=== PATIENT | female | born 1940 | race Caucasian/White ===

== ENCOUNTER → 2017-11-14 | Outpatient (CLI) | payer MEDICARE ==
[~2017-11-14] MED LIST: ASP325T PO; ENAL10TA PO; ENAL20TA PO; HCT25T PO; HYDR-3820 PO; HYDR12.5 PO; IRON; MECL-124 PO; NITR-65 PO; PNT40TEC; SCR1T1; [UNRECOGNIZED DRUG - CODE] PO
--- NOTE | 2017-11-14 14:01 | Diagnostic Imaging Report ---
Indication: Injury to right shoulder. Time of exam: 2:13 PM Three views of the right shoulder were obtained. Glenohumeral and acromioclavicular alignment are normal. Acromiohumeral space is normal. No fracture or dislocation is detected. There are degenerative changes at the glenohumeral joint with some spurring at the humeral head neck junction. Impression: Degenerative changes. No acute bony abnormality is detected. Dictated by: Dictated on workstation # [id number]
== END ==
LOC: RAD 13:39
PROVIDERS: ATTEND Nurse Practitioner Family
DX: M19.011 Primary osteoarthritis, right shoulder (principal)
CPT/HCPCS: 73030

== ENCOUNTER 2019-09-18 11:31 | Outpatient (CLI) | payer MEDICARE ==
[~2019-09-18] VITALS: Ht 165.1 cm; Wt 59.1 kg
[~2019-09-18 11:31] MED LIST changes: +ACHYD1T PO; -HYDR-3820 PO
[2019-09-18] MEDS ORDERED: HYDR12.56 PO (12:57)
== END 2019-09-18 13:15 | disposition home or self-care (01) ==
LOC: PREOP 11:31
PROVIDERS: ATTEND Podiatrist Foot Surgery
DX: Z01.818 Encounter for other preprocedural examination (principal)

== ENCOUNTER 2019-09-25 06:35 | Day surgery (SDC) | payer MEDICARE ==
--- NOTE | 2019-09-21 09:14 | HISTORY AND PHYSICAL ---
DATE OF SERVICE: To have outpatient surgery by Dr. Rodriguez. CHIEF COMPLAINT: Left foot has bunion, wants corrected. ALLERGIC TO MEDICATIONS: CODEINE. MEDICATIONS NOW: 1. Enalapril 20 mg 1 daily. 2. HCTZ 12.5 1 daily. PAST SURGICAL HISTORY: Both rotator cuffs, tonsils, appendectomy, complete hysterectomy and both cataracts. FAMILY HISTORY: Diabetes in grandmother. Heart disease in mother. Denies asthma, TB, lung disease, or cancer. REVIEW OF SYSTEMS: HEAD: Denies headache, dizziness, fainting. EYES, EARS, NOSE AND THROAT: Denies diplopia, tinnitus, sore throat. RESPIRATORY: Denies asthma, TB, coughing, congestion, smoking or wheezing. HEART: No history of heart problems, chest pain or heart murmur. GASTROINTESTINAL: Appetite good. Denies blood in stools, diarrhea, constipation, ulcer, vomiting. GENITOURINARY: Denies blood, pain or frequency. PHYSICAL EXAMINATION: GENERAL: The patient is a white female, thin, in no acute respiratory distress at rest. VITAL SIGNS: Blood pressure 130/80, pulse 84. GENERAL APPEARANCE: Okay. EYES: No conjunctivitis. EARS: No drainage. THROAT: Noninflamed. HEART: Regular rate and rhythm. LUNGS: Clear to auscultation. ABDOMEN: Soft. Liver and spleen nonpalpable. EXTREMITIES: Good dorsalis pedis pulses on feet. IMPRESSION: The patient is okay for surgery. Job ID: [id number] DocumentID: [id number] Dictated Date: 09/18/2019 15:25:35 Director Of Partner Marketing Date: 09/18/2019 15:49:12 Dictated By: PABLO ORDAZ DO
[~2019-09-25] VITALS: Ht 165.1 cm; Wt 59.1 kg
[2019-09-25] VITALS (9 sets, daily range): BP systolic 80–175; BP diastolic 46–98
[~2019-09-25 06:35] MED LIST changes: +HYDR12.56 PO
--- OUTSIDE RECORDS SUMMARY | 2019-09-25 06:39 | XMS REPORT | Continuity of Care Document ---
Author Organization Unknown Address Unknown Phone Unavailable Allergies Active Description Code Type Severity Reaction Onset Reported/Identified Relationship to Patient Clinical Status Yes No Known Drug Allergies [id number] Drug Allergy Unknown N/A 02/09/2016 Yes codeine [id number] Drug Allergy Unknown Vomiting 09/18/2019 Medications There is no data. Problems Date Dx Coded Attending Type Code Diagnosis Diagnosed By 10/30/2012 CATARINO MARTINEZ MD Ot 780. 4 DIZZINESS AND GIDDINESS 10/30/2012 CATARINO MARTINEZ MD Ot 787. 01 NAUSEA WITH VOMITING 03/26/2015 GEORGIA العلي MD Ot 251. 2 HYPOGLYCEMIA NOS 03/26/2015 GEORGIA العلي MD Ot 599. 0 URIN TRACT INFECTION NOS 03/26/2015 GEORGIA العلي MD Ot 780. 2 SYNCOPE AND COLLAPSE 03/26/2015 GEORGIA العلي MD Ot V04. 81 ND FOR PROPHYLACTIC VACCIN AND INOCULATI 02/09/2016 Ot 722.52 LUM B/LUMBOSAC DISC DEGEN 02/09/2016 Ot V76.12 OTH SCREEN MAMMO- MALIGN NEOPLASM OF ANA LAURA 02/09/2016 VI DPM, YADIEL Q Ot M20. 12 HALLUX VALGUS (ACQUIRED), LEFT FOOT 02/09/2016 VI DPM, YADIEL Q Ot M20. 42 OTHER HAMMER TOE(S) (ACQUIRED), LEFT KEITH 02/09/2016 VI DPM, YADIEL Q Ot Z01.818 ENCOUNTER FOR OTHER PREPROCEDURAL EXAMIN 02/09/2016 VI DPM, YADIEL Q Ot Z11. 2 ENCOUNTER FOR SCREENING FOR OTHER BACTER 02/11/2016 GEORGIA العلي MD Ot R10. 2 PELVIC AND PERINEAL PAIN 02/13/2016 Ot 722.52 LUM B/LUMBOSAC DISC DEGEN 02/13/2016 Ot V76.12 OTH SCREEN MAMMO- MALIGN NEOPLASM OF ANA LAURA 02/13/2016 SEGLIE MD, GEORGIA R Ot R10. 2 PELVIC AND PERINEAL PAIN 02/13/2016 VI DPM, YADIEL Q Ot M20. 12 HALLUX VALGUS (ACQUIRED), LEFT FOOT 02/13/2016 VI DPM, YADIEL Q Ot M20. 42 OTHER HAMMER TOE(S) (ACQUIRED), LEFT KEITH 02/15/2016 ZOHRA DANIELSON, GE[place]GIA R Ot R10. 2 PELVIC AND PERINEAL PAIN 02/16/2016 VI DPM, YADIEL Q Ot M20. 12 HALLUX VALGUS (ACQUIRED), LEFT FOOT 02/16/2016 VI DPM, YADIEL Q Ot M20. 42 OTHER HAMMER TOE(S) (ACQUIRED), LEFT KEITH 02/19/2016 VI DPM, YADIEL Q Ot M20. 12 HALLUX VALGUS (ACQUIRED), LEFT FOOT 02/19/2016 VI DPM, YADIEL Q Ot M20. 42 OTHER HAMMER TOE(S) (ACQUIRED), LEFT KEITH 03/02/2016 ZOHRA DANIELSON, GEORGIA R Ot R10. 2 PELVIC AND PERINEAL PAIN 03/23/2016 ZOHRA DANIELSON, GE[place]IA R Ot R10. 2 PELVIC AND PERINEAL PAIN 11/15/2017 PETE COLLADO Ot M19.011 PRIMARY OSTEOARTHRITIS, RIGHT SHOULDER 11/20/2017 PETE COLLADO Ot M19.011 PRIMARY OSTEOARTHRITIS, RIGHT SHOULDER 12/06/2017 PETE COLLADO Ot M19.011 PRIMARY OSTEOARTHRITIS, RIGHT SHOULDER 12/23/2017 PETE COLLADO Ot M19.011 PRIMARY OSTEOARTHRITIS, RIGHT SHOULDER 09/14/2019 PETE COLLADO [employer] Ot M19.011 PRIMARY OSTEOARTHRITIS, RIGHT SHOULDER 09/14/2019 PETE COLLADOP Ot M19.011 PRIMARY OSTEOARTHRITIS, RIGHT SHOULDER 09/18/2019 PETE COLLADO Ot M19.011 PRIMARY OSTEOARTHRITIS, RIGHT SHOULDER 09/18/2019 PABLO REZA DPM Ot Z01.818 ENCOUNTER FOR OTHER PREPROCEDURAL EXAMIN 09/24/2019 PABLO REZA DPM Ot Z01.818 ENCOUNTER FOR OTHER PREPROCEDURAL EXAMIN 09/24/2019 PETE COLLADO Ot M19.011 PRIMARY OSTEOARTHRITIS, RIGHT SHOULDER Procedures There is no data. Results Test Result Range Methicillin resistant Staphylococcus aur eus (MRSA) screening culture - 02/09/16 15:00 Methicillin resistant Staphylococcus aureus (MRSA) scr eening culture NEG NRG Encounters ACCT No. Visit Date/Time Discharge Status Pt. Type Provider Facility Loc./Unit Complaint [id number] 09/18/2019 11:31:00 020 13:15:00 DIS Outpatient PABLO REZA DPM [facility] PREOP HALLUX VALGUS [id number] 11/14/2017 13:39:00 018 23:59:59 CLS Outpatient GÉNESIS KAN PETE FINN [facility] RAD M25.511 [id number] 02/13/2016 10:54:00 016 16:28:00 DIS Outpatient YADIEL LEBRON DPM [facility] LEFT FOOT BUNION AND SE COND DIGIT HAMMERTOE [id number] 02/09/2016 14:11:00 016 23:59:59 CLS Outpatient GEORGIA العلي MD [facility] RAD PAIN OF R PELVIS [id number] 02/09/2016 14:03:00 016 15:22:00 DIS Outpatient YADIEL LEBRON DPM [facility] PREOP LEFT HALLGUS [id number] 03/25/2015 21:13:00 015 13:15:00 DIS Inpatient GEORGIA العلي MD [facility] CSD SYNCOPAL EPISODE;UTI;HY POGLYCEMIA [id number] 10/29/2012 22:30:00 013 00:19:00 DIS Emergency CATARINO MARTINEZ MD [facility] ER VOMITING, DIZZY [id number] 09/25/2019 12:00:00 P EN Preadmit PABLO REZA DPM [facility] HALLUX VALGUS [id number] 06/29/2011 07:00:00 Document Registration [id number] 12/16/2010 07:25:00 Document Registration
[2019-09-25] MEDS ORDERED: LACTATED RINGERS 1,000 ML IV PRN (06:43)
[2019-09-25] MEDS ORDERED: ceFAZolin INJECTION 1,000 MG in WATER (STERILE) FOR INJECTION 10 ML IV ONE (06:45)
[2019-09-25] MEDS ORDERED: BUPIVACAINE 0.5% 30 ML (SENSORCAINE) VIAL ONE (07:07)
[2019-09-25] MEDS ORDERED: MEPIVACAINE (CARBOCAINE) 2% 50 ML VIAL ONE (07:07)
[2019-09-25] MEDS ORDERED: SEVOFLURANE (ULTANE) 15 ML INHAL SOLN ONE (07:18)
[2019-09-25] MEDS ORDERED: ONDANSETRON 4 MG/2 ML (SDV) Z0FRAN ONE (07:18)
[2019-09-25] MEDS ORDERED: DEXAMETHASONE 10 MG/ML (DECADRON) 1 ML VIAL ONE (07:18)
[2019-09-25] MEDS ORDERED: proPOfol 200 MG/20 ML (DIPRIVAN) VIAL IV ONE (07:18)
[2019-09-25] MEDS ORDERED: LIDOCAINE PF 2% 5 ML (XYLOCAINE) VIAL ONE (07:18)
[2019-09-25] MEDS ORDERED: fentaNYL INJECTION 100 MCG/2 ML AMP ONE (07:18)
--- NOTE | 2019-09-25 07:22 | Progress Note-Pre Operative ---
Pre-Operative Progress Note H&P Reviewed The H&P was reviewed, patient examined and no changes noted. Date Seen by Provider: Sep 25, 2019 Time Seen by Provider: 07:31 Date H&P Reviewed: Sep 25, 2019 Time H&P Reviewed: 07:32 Pre-Operative Diagnosis: hallux valgus left foot PABLO REZA DPSubhash Sep 25, 2019 07:22
[2019-09-25] MEDS ORDERED: LACTATED RINGERS 1,000 ML IV SCH (08:38)
--- NOTE | 2019-09-25 08:38 | Anesthesia-General Post-Op ---
General Patient Condition Mental Status/LOC: Same as Preop Cardiovascular: Satisfactory Nausea/Vomiting: Absent Respiratory: Satisfactory Pain: Controlled Complications: Absent Post Op Complications Complications None Follow Up Care/Instructions Patient Instructions None needed. Anesthesia/Patient Condition Patient Condition Patient is doing well, no complaints, stable vital signs, no apparent adverse anesthesia problems. No complications reported per nursing. GORDON CRUZ CRNA Sep 25, 2019 08:38
--- NOTE | 2019-09-25 08:38 | Progress Note-Post Operative ---
Post-Operative Progess Note Surgeon (s)/Talk Show Host (s) Surgeon PABLO REZA DPM Talk Show Host: none Pre-Operative Diagnosis hallux valgus left foot Post-Operative Diagnosis same Procedure & Operative Findings Date of Procedure 09/25/19 Procedure Performed/Findings excision of k wire and remodeling of firts metatarsal head left foot Anesthesia Type general with infiltration. Estimated Blood Loss Estimated blood loss (mL): min Specimens/Packing Specimens Removed none Packing: none PABLO REZA DPM Sep 25, 2019 08:38
[2019-09-25] MEDS ORDERED: ONDANSETRON 4 MG/2 ML (SDV) Z0FRAN IVP PRN (08:45)
[2019-09-25] MEDS ORDERED: morphine INJ 10 MG/ML 1ML (SYR OR VIAL) IVP ONE (08:45)
[2019-09-25] MEDS ORDERED: fentaNYL INJECTION 100 MCG/2 ML AMP IVP ONE (08:45)
--- NOTE | 2019-09-25 10:27 | OPERATIVE REPORT ---
DATE OF SERVICE: 09/25/2019 PREOPERATIVE DIAGNOSIS: Hallux valgus, left foot. POSTOPERATIVE DIAGNOSIS: Hallux valgus, left foot. NAME OF OPERATION: Remodeling first metatarsal head, left foot with removal of K-wire. DESCRIPTION OF OPERATION: With the patient in supine position, having been by general anesthetic with regional infiltration via 9 mL of a 50:50 mixture of 0.5% Marcaine plain and 1% Carbocaine plain, sterile prep and drape were performed. A 2 semielliptical incisions were made linearly around the lesion measuring approximately 1 cm in diameter. Total length of the semielliptical incision was approximately 5 cm. These were deepened with sharp and blunt dissection. Vital structures identified and retracted. Superficial veins were cauterized. Dissection was carried deep to the first MPJ capsule and this was incised in a linear fashion. There was well-developed exostosis noted just under the lesion in question. This was resected. The first metatarsal head was remodeled and bony prominences were removed. A K-wire was removed from the first metatarsal head that was placed in a previous surgery and all bony prominences were remodeled to a normal contour. The area was flushed with copious amounts of saline, inspected for any other anatomical abnormalities, none were noted. Capsule was closed with continuous locked suture of 4-0 Vicryl. Superficial fascia and skin were reapproximated with two horizontal mattress sutures of 4-0 Prolene in continuous locked suture of 4-0 Prolene. Adaptic, sterile corrective compressive wet to dry Betadine dressing were applied, carried above the level of the ankle. The patient tolerated the procedure well with minimal blood loss, left the OR to PAR in apparent good condition, is to be seen in the office in 2 weeks for follow-up care. Job ID: [id number] DocumentID: [id number] Dictated Date: 09/25/2019 08:57:43 Reed Polisher Date: 09/25/2019 10:26:55 Dictated By: PABLO REZA DPM
--- NOTE | 2019-09-26 09:12 | Physical Therapy Progress Note ---
Therapy Progress Note This note is for DOS 09/25/2019. Pt with nurse to toilet. Pt reports she has a walker and cane at home. Per nursing and DC instructions, pt is FWB. Pt demonstrated ability to walk on level surfaces and up/down a step with FWW. Pt appears safe at this time with functional mobility. Nursing reinforced FWB to patient. Pt voiced no questions or concerns. DIVYA JEAN PT Sep 26, 2019 09:12
== END 2019-09-25 10:25 | disposition home or self-care (01) ==
LOC: SDC 06:35
PROVIDERS: ATTEND Podiatrist Foot Surgery
DX: M20.12 Hallux valgus (acquired), left foot (principal); Z11.2 Encounter for screening for other bacterial diseases; I10 Essential (primary) hypertension; Z79.899 Other long term (current) drug therapy; Z88.5 Allergy status to narcotic agent
CPT/HCPCS: 87081

== ENCOUNTER 2020-05-09 16:10 | Inpatient (IN) | payer MEDICARE ==
[~2020-05-09] VITALS: Ht 162.5 cm; Wt 56.5 kg
[~2020-05-09 16:10] MED LIST changes: -ENAL20TA PO; +ENAL20TA16 PO
--- NOTE | 2020-05-09 16:56 | ED Abdominal Pain ---
General Chief Complaint: Abdominal/GI Problems Stated Complaint: VOMITING,STOMACH PAIN Nursing Triage Note: PT REPORTS ABD PAIN THAT STARTED THIS MORNING AFTER TAKING HER MEDICATION. PT WHEELED TO ROOM 05 BY CYDNEY RAMOS. Sepsis Screen: No Definite Risk Source of Information: Patient Exam Limitations: No Limitations (GÉNESIS RIOS STUDENT) History of Present Illness Date Seen by Provider: May 09, 2020 Time Seen by Provider: 16:30 Initial Comments Ms. Rader is an 80 y/o F who presents to ED with chief complaint of a bdominal pain and vomiting. She said last night she was unable to sleep and woke up 12 times for abdominal pain. She said this morning after eating OJ/coffee she vomited. She reports vomiting multiple times after this with her most recent "dry heave" being at 10am. She denies any blood in the stool or diarrhea/constipation with most recent BM yesterday morning. She said her abdominal pain is located in upper abdomen and was 7 or 8 out of 10 at its worst. Right now it is at 5-6/10. She said the pain has been constant since it started overnight and has gradually decreased in intensity. She reports no change in symptoms with eating. She has only been able to eat crackers and sips of water today. She reports a PMH of appendectomy, hysterectomy and a "hole in her stomach" that has been "fixed surgically." She said this hole in her stomach caused her to lose blood through her stool. She denies any blood in the stool right now. Of note, she went to her PCP to get a urine sample 2 days ago for which she started taking ciprofloxacin yesterday for. She is also on hydrochlorothiazide and enalapril for HTN. (GÉNESIS RIOS MED STUDENT) Allergies and Home Medications Allergies Coded Allergies: codeine (Verified Allergy, Unknown, Vomiting, 09/18/19) Home Medications Enalapril Maleate 20 Mg Tablet, 20 MG PO DAILY, (Reported) Hydrochlorothiazide 12.5 Mg Tablet, 12.5 MG PO DAILY, (Reported) Patient Home Medication List Home Medication List Reviewed: Yes (GÉNESIS RIOS STUDENT) Review of Systems Review of Systems Constitutional: No chills, No diaphoresis, No fever, No malaise, No weakness EENTM: No Symptoms Reported; No Nose Congestion, No Throat Pain, No Throat Swelling Respiratory: Denies Cough, Denies Shortness of Air Cardiovascular: Denies Chest Pain Gastrointestinal: Denies Abdomen Distended; Abdominal Pain; Denies Blood Streaked Stools, Denies Constipated, Denies Diarrhea; Nausea, Poor Appetite, Poor Fluid Intake; Denies Rectal Bleeding; Vomiting Genitourinary: No Symptoms Reported Musculoskeletal: no symptoms reported Skin: no symptoms reported Psychiatric/Neurological: No Symptoms Reported (GÉNESIS RIOS) Past Ckoknux-Rwnraq-Wrvyax Hx Patient Social History Alcohol Use: Denies Use Recreational Drug Use: No Smoking Status: Former Smoker Type Used: Cigarettes Former Smoker, Quit: Jul 04, 1969 Recent Foreign Travel: No Contact w/Someone Who Travel: No Recent Infectious Disease Expo: No Recent Hopitalizations: No (GÉNESIS RIOS) Immunizations Up To Date Tetanus Booster (TDap): More than 5yrs PED Vaccines UTD: Yes Date of Pneumonia Vaccine: Jul 04, 2011 Date of Influenza Vaccine: Apr 03, 2019 (GÉNESIS RIOS Sure Chill GUSTAVO) Seasonal Allergies Seasonal Allergies: No (GÉNESIS RIOS) Past Medical History Surgeries: Yes (X5 SURG.FOR PEDAL NEUROMAS, HIATAL HERNIA WITH ULCER REPAIR) Adenoidectomy, Appendectomy, Hysterectomy, Oophorectomy, Orthopedic, Tonsillectomy Respiratory: No Currently Using CPAP: No Currently Using BIPAP: No Cardiac: Yes Hypertension Neurological: No Reproductive Disorders: No Female Reproductive Disorders: Denies 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 Sexually Transmitted Disease: No HIV/AIDS: No Genitourinary: No Gastrointestinal: Yes Polyps, Ulcer Musculoskeletal: Yes Arthritis Endocrine: No HEENT: Yes Cataract Loss of Vision: Denies Hearing Impairment: Denies Cancer: No Psychosocial: No Integumentary: No Blood Disorders: No Adverse Reaction/Blood Tranf: No (HAS HAD BLOOD WITH NO REACTION) (GÉNESIS RIOS Sure [employer]ill GUSTAVO) Family Medical History Alzheimer's disease 19 MOTHER Arthritis 19 FATHER 19 MOTHER Cataracts 19 FATHER 19 MOTHER Visual disorder 19 FATHER 19 MOTHER Physical Exam Vital Signs Vital Signs - First Documented 05/09/20 16:28 Temp 36.6 Pulse 86 Resp 16 B/P (MAP) 138/81 (100) O2 Delivery Room Air (KEISHA CABALLERO MD) Vital Signs Capillary Refill : Less Than 3 Seconds (GÉNESIS RIOS MED STUDENT) Height/Weight/BMI Height: 5'4.00" Weight: 130lbs. 1.0oz. [id number]; 20.00 BMI Method:Stated General Appearance: WD/WN, no apparent distress HEENT: PERRL/EOMI, normal ENT inspection Neck: full range of motion, normal inspection Respiratory: chest non-tender, lungs clear, normal breath sounds, no respiratory distress, no accessory muscle use Cardiovascular: regular rate, rhythm, no murmur Gastrointestinal: normal bowel sounds, soft, no pulsatile mass; No distended, No rebound; tenderness (Minimal TTP at upper abdomen) Extremities: normal range of motion, non-tender, normal inspection, no calf tenderness Back: normal inspection, no CVA tenderness Neurologic/Psychiatric: no motor/sensory deficits, alert, normal mood/affect, oriented x 3 Skin: normal color, warm/dry (GÉNESIS RIOS MED STUDENT) Progress/Results/Core Measures Results/Orders Lab Results Laboratory Tests Test 05/09/20 17:10 Range/Units White Blood Count 9.9 4.3-11.0 10^3/uL Red Blood Count 5.01 3.80-5.11 10^6/uL Hemoglobin 14.9 11.5-16.0 g/dL Hematocrit 43 35-52 % Mean Corpuscular Volume 86 80-99 fL Mean Corpuscular Hemoglobin 30 25-34 pg Mean Corpuscular Hemoglobin Concent 34 32-36 g/dL Red Cell Distribution Width 12.4 10.0-14.5 % Platelet Count 265 130-400 10^3/uL Mean Platelet Volume 9.6 9.0-12.2 fL Immature Granulocyte % (Auto) 1 % Neutrophils (%) (Auto) 88 H 42-75 % Lymphocytes (%) (Auto) 6 L 12-44 % Monocytes (%) (Auto) 6 0-12 % Eosinophils (%) (Auto) 0 0-10 % Basophils (%) (Auto) 0 0-10 % Neutrophils # (Auto) 8.7 H 1.8-7.8 10^3/uL Lymphocytes # (Auto) 0.6 L 1.0-4.0 10^3/uL Monocytes # (Auto) 0.5 0.0-1.0 10^3/uL Eosinophils # (Auto) 0.0 0.0-0.3 10^3/uL Basophils # (Auto) 0.0 0.0-0.1 10^3/uL Immature Granulocyte # (Auto) 0.1 0.0-0.1 10^3/uL Neutrophils % (Manual) 90 % Lymphocytes % (Manual) 5 % Monocytes % (Manual) 5 % Eosinophils % (Manual) 0 % Basophils % (Manual) 0 % Band Neutrophils 0 % Blood Morphology Comment NORMAL Sodium Level 125 *L 135-145 MMOL/L Potassium Level 4.0 3.6-5.0 MMOL/L Chloride Level 88 L 98-107 MMOL/L Carbon Dioxide Level 24 21-32 MMOL/L Anion Gap 13 5-14 MMOL/L Blood Urea Nitrogen 12 7-18 MG/DL Creatinine 0.70 0.60-1.30 MG/DL Estimat Glomerular Filtration Rate > 60 BUN/Creatinine Ratio 17 Glucose Level 125 H 70-105 MG/DL Calcium Level 10.2 H 8.5-10.1 MG/DL Corrected Calcium 8.5-10.1 MG/DL Total Bilirubin 1.5 H 0.1-1.0 MG/DL Aspartate Amino Transf (AST/SGOT) 24 5-34 U/L Alanine Aminotransferase (ALT/SGPT) 22 0-55 U/L Alkaline Phosphatase 65 40-136 U/L C-Reactive Protein High Sensitivity 0.42 0.00-0.50 MG/DL Total Protein 7.4 6.4-8.2 GM/DL Albumin 4.6 H 3.2-4.5 GM/DL Lipase 12 8-78 U/L (KEISHA CABALLERO MD) My Orders Orders - KEISHA CABALLERO MD Cbc With Automated Diff (05/09/20 16:28) Comprehensive Metabolic Panel (05/09/20 16:28) Hs C Reactive Protein (05/09/20 16:28) Lipase (05/09/20 16:28) Ua Culture If Indicated (05/09/20 16:28) Ed Iv/Invasive Line Start (05/09/20 16:28) Ondansetron Injection (Zofran Injectio (05/09/20 17:15) Lactated Ringers (Lr 1000 Ml Iv Solution (05/09/20 17:05) Manual Differential (05/09/20 17:10) Ns Iv 1000 Ml (Sodium Chloride 0.9%) (05/09/20 17:43) Acute Abd Series (05/09/20 18:00) Promethazine Injection (Phenergan Injec (05/09/20 19:15) Famotidine Injection (Pepcid Injection) (05/09/20 19:15) Ct Abdomen/Pelvis W (05/09/20 19:04) (KEISHA CABALLERO MD) Medications Given in ED Current Medications Medications Dose Ordered Sig/Keke Route Start Time Stop Time Status Last Admin Dose Admin Lactated Ringer's 1,000 ml @ 0 mls/hr Q0M ONCE IV 05/09/20 17:05 05/09/20 17:06 DC 05/09/20 17:28 0 MLS/HR Ondansetron HCl 4 mg ONCE ONCE IVP 05/09/20 17:15 05/09/20 17:16 DC 05/09/20 17:23 4 MG (KEISHA CABALLERO MD) Vital Signs/I&O 05/09/20 16:28 Temp 36.6 Pulse 86 Resp 16 B/P (MAP) 138/81 (100) O2 Delivery Room Air (KEISHA CABALLERO MD) Blood Pressure Mean: 100 Progress Progress Note : Progress Note Ms. Aldridge is an 80 year old female who presents to ED with abdominal pain and vomiting of 1 day duration. We will order CBC, CMP, lipase, UA, CRP to assess for infection, blood loss, pancreatitis. (GÉNESIS RIOS MED STUDENT) Progress Note : Time: 19:15 Progress Note Patient was treated with Zofran and labs were obtained. She was found to have hyponatremia. The liter of LR that was ordered was changed to normal saline. Labs otherwise were fairly unremarkable. An acute abdominal series was obtained to evaluate for any pulmonary abnormalities or possible bowel obstruction. Unfortunately, the abdominal film was suggestive of possible obstruction versus ileus. Patient reports persistent nausea which is being treated with Phenergan and Pepcid. CT of the abdomen and pelvis with contrast is being obtained. Care of this patient is being transitioned to Dr. Goldberg at this time. (KEISHA CABALLERO MD) Progress Note : Time: 20:32 Progress Note Assume care of the patient [id number]. I agree with the above documented clinical history and physical exam. I agree with the assessment and does appear to be bowel obstruction on CT. There is a small hypodense tissue at the base of the lungs sitting on the diaphragm that we discussed with Dr. Humphries, radiology and he states this is just coming off the diaphragm it is a bit of fat and does not represent tumor or malignancy. Plan to set the patient up in the hospital for monitoring for bowel obstruction. If her nausea is under control after the P henergan then we will not do an NG tube. (SUKUMAR GOLDBERG) Diagnostic Imaging Diagonstic Imaging: Xray Plain Films/CT/US/NM/MRI: chest, abdomen, pelvis Comments Acute abdominal series viewed by me and report reviewed. See report below: NAME: NATE RADER [facility] REC#: [id number] PT STATUS: REG ER : 1940 PHYSICIAN: KEISHA CABALLERO MD ADMIT DATE: 05/09/20/ER Draft Date of Exam:05/09/20 ACUTE ABD SERIES INDICATION: Abdominal pain. EXAMINATION: The upright chest shows no acute abnormality. FINDINGS: Supine and upright views of the abdomen shows several air-filled loops of small bowel with several loops being upper normal in diameter at 3 cm. No mucosal edema is evident. There is some air in the colon. There is interposition of a loop of colon between the diaphragm and liver. There is a calcification in the left lower quadrant which is curvilinear in nature and measures approximately 3 cm in greatest dimension. This is somewhat oblong and unusual for gallstone ileus although in the differential it is not felt to be likely. There is no free intraperitoneal air. No urinary tract calculus is evident. There are degenerative changes of the spine. IMPRESSION: The bowel gas pattern is probably secondary to an ileus. Low-grade obstruction is a possibility. Continued follow-up is recommended. Dictated on workstation # [id number] Dict: 05/09/20 1845 Trans: 05/09/20 1852 [facility] [id number] Interpreted by: JAYSON HUMPHRIES MD (KEISHA CABALLERO MD) Diagonstic Imaging: CT Plain Films/CT/US/NM/MRI: abdomen, pelvis Comments [facility]. [place], [place] NAME: NATE RADER [facility] REC#: [id number] PT STATUS: REG ER : 1940 PHYSICIAN: KEISHA CABALLERO MD ADMIT DATE: 05/09/20/ER Signed Date of Exam:05/09/20 CT ABDOMEN/PELVIS W PROCEDURE: CT abdomen and pelvis with contrast. TECHNIQUE: Multiple contiguous axial images were obtained through the abdomen and pelvis after administration of intravenous contrast. Auto Exposure Controls were utilized during the CT exam to meet ALARA standards for radiation dose reduction. All CT scans use one or more of the following dose optimizing techniques: automated exposure control, MA and/or KvP adjustment based on patient size and exam type or iterative reconstruction. INDICATION: Abdominal pain. Possible small bowel obstruction. FINDINGS: There is a small hiatal hernia. The lung bases are clear. Liver, gallbladder and bile ducts are normal. The spleen, pancreas and adrenals are normal. Kidneys, ureters and bladder are normal. There are multiple air and fluid-filled loops of dilated small bowel proximally. There are nondilated loops of small bowel distally and the changes are consistent with a small bowel obstruction. There is a 3 cm curvilinear calcification seen in the mesentery in the left mid abdomen which does not appear to be within a loop of bowel. There is no bowel wall edema. There is some air scattered throughout a nondilated colon. There is no free intraperitoneal air or fluid. There is no acute bony abnormality. IMPRESSION: Small bowel obstruction. No obstructing lesion is evident on this study. No bowel wall edema is evident at this time. Dictated by: Dictated on workstation # [id number] Dict: 05/09/201945 Trans: 05/09/201952 [facility] [id number] Interpreted by: JAYSON HUMPHRIES MD Electronically signed by: JAYSON HUMPHRIES MD 05/09/201952 Reviewed: Reviewed by Me (SUKUMAR GOLDBERG) Departure Communication (Admissions) Time/Spoke to Admitting Phy: 20:42 Dr Cabral: Agrees to admit or medical managment with Surgical Consult. Time/Spoke to Consulting Phy: 20:43 Discussed the case with Dr. Rosa, General Surgery and he agrees to consult on the case. (SUKUMAR GOLDBERG) Impression Primary Impression: Small bowel obstruction Additional Impressions: Abdominal pain Qualified Codes: R10.84 - Generalized abdominal pain Nausea & vomiting Qualified Codes: R11.2 - Nausea with vomiting, unspecified Hyponatremia Disposition: ADMITTED INPATIENT Condition: Stable Admissions Decision to Admit Reason: Admit from ER (General) Decision to Admit/Date: May 09, 2020 Time/Decision to Admit Time: 20:30 (SUKUMAR GOLDBERG) Departure-Patient Inst. Referrals: GEORGIA العلي MD (PCP) Primary Care Physician MADDIE MARTINEZ MD (Family) Primary Care Physician Medical student attestation and attending note: This pleasant 80-year-old woman presents to the emergency room with nausea, vomiting, and abdominal discomfort. I have personally interviewed and examined the patient along with COSMO Spann. I have reviewed his documentation and agree with his history, physical, and assessments except where otherwise noted. See progress note above. Exam: General: Alert, oriented, well-developed no acute distress. HEENT: Normocephalic and atraumatic Heart: Regular rate and rhythm without murmur Lungs: Clear to auscultation bilaterally with normal effort Abdomen: Soft, minimally tender in the upper abdomen, normal bowel sounds, mildly distended Extremities: Normal to inspection, no edema Neuropsych: Alert, oriented, normal mood and affect, no focal deficits (KEISHA CABALLERO MD) GÉNSEIS RIOS MED STUDENT May 09, 2020 16:55 KEISHA CABALLERO MD May 09, 2020 19:17 SUKUMAR GOLDBERG May 09, 2020 20:33
[2020-05-09] MEDS ORDERED: LACTATED RINGERS 1,000 ML IV ONE (17:05)
[2020-05-09] MEDS ORDERED: ONDANSETRON 4 MG/2 ML (SDV) Z0FRAN IVP ONE (17:15)
[2020-05-09 17:29] LABS: BASOPHILS % (AUTO) 0 % (0-10); EOSINOPHILS % (AUTO) 0 % (0-10); HEMATOCRIT 43 % (35-52); HEMOGLOBIN 14.9 g/dL (11.5-16.0); LYMPHOCYTES # (AUTO) 0.6 10^3/uL (1.0-4.0); LYMPHOCYTES % (AUTO) 6 % (12-44); MEAN CORPUSCULAR HEMOGLOBIN 30 pg (25-34); MEAN CORPUSCULAR HGB CONC 34 g/dL (32-36); MEAN CORPUSCULAR VOLUME 86 fL (80-99); MEAN PLATELET VOLUME 9.6 fL (9.0-12.2); MONOCYTES # (AUTO) 0.5 10^3/uL (0.0-1.0); MONOCYTES % (AUTO) 6 % (0-12); NEUTROPHILS # (AUTO) 8.7 10^3/uL (1.8-7.8); NEUTROPHILS % (AUTO) 88 % (42-75); PLATELET COUNT 265 10^3/uL (130-400); WHITE BLOOD COUNT 9.9 10^3/uL (4.3-11.0)
[2020-05-09 17:34] LABS: ALBUMIN 4.6 GM/DL (3.2-4.5); CHLORIDE 88 MMOL/L (98-107)
[2020-05-09 17:35] LABS: CALCIUM 10.2 MG/DL (8.5-10.1)
[2020-05-09 17:36] LABS: GLUCOSE 125 MG/DL (70-105); TOTAL PROTEIN 7.4 GM/DL (6.4-8.2)
[2020-05-09 17:38] LABS: BILIRUBIN,TOTAL 1.5 MG/DL (0.1-1.0); CARBON DIOXIDE 24 MMOL/L (21-32)
[2020-05-09 17:40] LABS: ALKALINE PHOSPHATASE 65 U/L (40-136); GFR ESTIMATED > 60
[2020-05-09 17:41] LABS: BUN/CREATININE RATIO 17; SODIUM 125 MMOL/L (135-145)
[2020-05-09 17:43] LABS: ALANINE AMINOTRANSFERASE 22 U/L (0-55); LIPASE 12 U/L (8-78)
[2020-05-09] MEDS ORDERED: NS IV 1000 ML 1,000 ML IV SCH (17:43)
[2020-05-09 17:59] LABS: BAND NEUTROPHILS 0 %; BASOPHILS % (MANUAL) 0 %; EOSINOPHILS % (MANUAL) 0 %; LYMPHOCYTES % (MANUAL) 5 %; MONOCYTES % (MANUAL) 5 %; NEUTROPHILS % (MANUAL) 90 %; RBC MORPH NORMAL
--- NOTE | 2020-05-09 18:52 | Diagnostic Imaging Report ---
INDICATION: Abdominal pain. EXAMINATION: The upright chest shows no acute abnormality. FINDINGS: Supine and upright views of the abdomen shows several air-filled loops of small bowel with several loops being upper normal in diameter at 3 cm. No mucosal edema is evident. There is some air in the colon. There is interposition of a loop of colon between the diaphragm and liver. There is a calcification in the left lower quadrant which is curvilinear in nature and measures approximately 3 cm in greatest dimension. This is somewhat oblong and unusual for gallstone ileus although in the differential it is not felt to be likely. There is no free intraperitoneal air. No urinary tract calculus is evident. There are degenerative changes of the spine. IMPRESSION: The bowel gas pattern is probably secondary to an ileus. Low-grade obstruction is a possibility. Continued follow-up is recommended. Dictated by: Dictated on workstation # [id number]
[2020-05-09] MEDS ORDERED: FAMOTIDINE 20MG/2ML IV (PEPCID) IVP ONE (19:15)
[2020-05-09] MEDS ORDERED: PROMETHAZINE INJ 25 MG/ML (PHENERGAN) AMP IVP ONE (19:15)
[2020-05-09] MEDS ORDERED: IOHEXOL 350 MG/ML 100 ML (OMNIPAQUE 350) VIAL IV ONE ×2 (19:45)
[2020-05-09] MEDS ORDERED: NS 100 ML (IVPB) BAG IV ONE ×2 (19:45)
[2020-05-09] MEDS ORDERED: HOLD METFORMIN - RECEIVED CONTRAST 20 ML VIAL IV SCH ×2 (19:45)
--- NOTE | 2020-05-09 19:51 | Diagnostic Imaging Report ---
PROCEDURE: CT abdomen and pelvis with contrast. TECHNIQUE: Multiple contiguous axial images were obtained through the abdomen and pelvis after administration of intravenous contrast. Auto Exposure Controls were utilized during the CT exam to meet ALARA standards for radiation dose reduction. All CT scans use one or more of the following dose optimizing techniques: automated exposure control, MA and/or KvP adjustment based on patient size and exam type or iterative reconstruction. INDICATION: Abdominal pain. Possible small bowel obstruction. FINDINGS: There is a small hiatal hernia. The lung bases are clear. Liver, gallbladder and bile ducts are normal. The spleen, pancreas and adrenals are normal. Kidneys, ureters and bladder are normal. There are multiple air and fluid-filled loops of dilated small bowel proximally. There are nondilated loops of small bowel distally and the changes are consistent with a small bowel obstruction. There is a 3 cm curvilinear calcification seen in the mesentery in the left mid abdomen which does not appear to be within a loop of bowel. There is no bowel wall edema. There is some air scattered throughout a nondilated colon. There is no free intraperitoneal air or fluid. There is no acute bony abnormality. IMPRESSION: Small bowel obstruction. No obstructing lesion is evident on this study. No bowel wall edema is evident at this time. Dictated by: Dictated on workstation # [id number]
[2020-05-09 20:38] LABS: BILIRUBIN,URINE NEGATIVE (NEGATIVE); CLARITY,URINE CLOUDY; COLOR,URINE YELLOW; GLUCOSE, URINE (UA) NEGATIVE (NEGATIVE); KETONES,URINE 2+ (NEGATIVE); LEUKOCYTE ESTERASE ,URINE 2+ (NEGATIVE); NITRITE,URINE NEGATIVE (NEGATIVE); PROTEIN,URINE NEGATIVE (NEGATIVE)
[2020-05-09 20:44] LABS: BACTERIA,URINE TRACE /HPF; RBC,URINE 0-2 /HPF; SQUAMOUS EPITHELIAL CELL,UR 0-2 /HPF; WBC,URINE 25-50 /HPF
[2020-05-09] MEDS ORDERED: fentaNYL INJECTION 100 MCG/2 ML AMP IVP ONE (20:45)
[2020-05-09] MEDS ORDERED: fentaNYL INJECTION 100 MCG/2 ML AMP ONE (20:54)
[2020-05-09 21:18] VITALS: BP 142/81
--- NOTE | 2020-05-09 21:35 | NUR ---
Nate AlfSaeLois admitted to room 421-1, with an admitting diagnosis of bowel obstruction , on 05/09/20 from ED via wheelchair, accompanied by staff.NATE RADER introduced to surroundings, call light, bed controls, phone, TV, temperature control, lights, meal times, smoking policy, visitor policy, side rail policy, bathrooms and showers. Patient Rights given to patient in the handbook.NATE RADER verbalizes understanding that [facility] is not responsible for the loss or damage to any personal effects or valuables that are kept in the patients possession during their hospitalization. The following Patient Care Plans were discussed with the patient: Admission, Diagnosis, Discharge Planning. NATE RADER verbalizes understanding of Interdisciplinary Patient Education. Patient and/or family were informed about the Rapid Response Team and its purpose.
[2020-05-09] MEDS ORDERED: fentaNYL INJECTION 100 MCG/2 ML AMP IVP PRN ×2 (22:00)
[2020-05-09] MEDS ORDERED: ONDANSETRON 4 MG/2 ML (SDV) Z0FRAN IVP PRN (22:00)
[2020-05-09] MEDS ORDERED: PROMETHAZINE INJ 25 MG/ML (PHENERGAN) AMP IVP PRN (22:00)
[2020-05-09] MEDS: LACTATED RINGERS 1,000 ML IV SCH (22:24)
[2020-05-09 23:49] VITALS: BP 159/76
[2020-05-10 04:00] VITALS: BP 148/78
[2020-05-10 06:19] LABS: ALBUMIN 3.6 GM/DL (3.2-4.5); CHLORIDE 95 MMOL/L (98-107); POTASSIUM 3.9 MMOL/L (3.6-5.0); SODIUM 126 MMOL/L (135-145)
[2020-05-10 06:20] LABS: CALCIUM 8.8 MG/DL (8.5-10.1)
[2020-05-10 06:21] LABS: GLUCOSE 115 MG/DL (70-105); TOTAL PROTEIN 5.7 GM/DL (6.4-8.2)
[2020-05-10 06:22] LABS: CARBON DIOXIDE 20 MMOL/L (21-32)
[2020-05-10 06:23] LABS: BILIRUBIN,TOTAL 1.4 MG/DL (0.1-1.0)
[2020-05-10 06:25] LABS: ALKALINE PHOSPHATASE 56 U/L (40-136); CREATININE SERUM 0.61 MG/DL (0.60-1.30); GFR ESTIMATED > 60
[2020-05-10 06:26] LABS: BASOPHILS % (AUTO) 0 % (0-10); BUN/CREATININE RATIO 16; EOSINOPHILS % (AUTO) 0 % (0-10); HEMATOCRIT 37 % (35-52); HEMOGLOBIN 13.1 g/dL (11.5-16.0); LYMPHOCYTES # (AUTO) 0.8 10^3/uL (1.0-4.0); LYMPHOCYTES % (AUTO) 9 % (12-44); MEAN CORPUSCULAR HEMOGLOBIN 30 pg (25-34); MEAN CORPUSCULAR HGB CONC 35 g/dL (32-36); MEAN CORPUSCULAR VOLUME 86 fL (80-99); MEAN PLATELET VOLUME 9.9 fL (9.0-12.2); MONOCYTES # (AUTO) 0.8 10^3/uL (0.0-1.0); MONOCYTES % (AUTO) 10 % (0-12); NEUTROPHILS # (AUTO) 6.4 10^3/uL (1.8-7.8); NEUTROPHILS % (AUTO) 80 % (42-75); PLATELET COUNT 225 10^3/uL (130-400)
[2020-05-10 06:28] LABS: ALANINE AMINOTRANSFERASE 15 U/L (0-55)
[2020-05-10 07:40] VITALS: BP 173/91
[2020-05-10] MEDS: LACTATED RINGERS 1,000 ML IV SCH ×2 (08:19→18:27)
[2020-05-10] MEDS ORDERED: PANTOPRAZOLE 40 MG (PROTONIX) VIAL IV SCH (09:00)
[2020-05-10 11:35] VITALS: BP 168/78
--- NOTE | 2020-05-10 12:40 | Progress Note - Hospitalist ---
Subjective HPI/CC On Admission Date Seen by Provider: May 10, 2020 Time Seen by Provider: 12:38 Objective Exam Vital Signs Vital Signs Date Time Temp Pulse Resp B/P (MAP) Pulse Ox O2 Delivery O2 Flow Rate FiO2 05/10/20 11:35 36.6 76 14 168/78 (108) 99 Room Air Capillary Refill : Less Than 3 Seconds Results/Procedures Lab Laboratory Tests 05/09/20 17:10 05/10/20 05:34 Patient resulted labs reviewed. Clinical Quality Measures DVT/VTE Risk/Contraindication: Risk Factor Score Per Nursin RFS Level Per Nursing on Admit: 2=Moderate KAROL GOODWIN MD May 10, 2020 12:40
--- NOTE | 2020-05-10 12:46 | Consultation - Surgery ---
JOURDAN LOPEZ MED STUDENT 05/10/20 1246: History of Present Illness History of Present Illness Patient Consulted On(prema/time) 05/10/20 12:40 Date Seen by Provider: May 10, 2020 Time Seen by Provider: 08:15 History of Present Illness Surgery was consulted for bowel obstruction, abdominal pain, and vomiting. Pt states pain in abdomen started 2 nights ago that was constant 8/10 non-refer red pain. Pain today is 4/10. Pt denies trying anything to help and nothing makes it better or worse. Pt had nausea but denies vomiting today. Pt threw up yesterday after breakfast but denies blood. Pt denies fever or KRUGER. Pt denies previous occurrences. Pt is on clear liquid diet. Last BM was on the 5th and normal loose stools. Pt's bladder has felt full but she can't go. Pt feels weak. Pt has help walking around. Pt's last colonoscopy was more than 10 years ago and had no findings. PMH - HTN, UTI. FamHx- sister had DM, no hx of colon cancer. PSH- appendectomy, hysterectomy, mesh repair in stomach, tonsilectomy, 2 surgeries on feet. med allergy- codeine. SocHx- drinks alcohol 3-4x/wk, denies smoking or recreational drugs. Allergies and Home Medications Allergies Coded Allergies: codeine (Verified Allergy, Unknown, Vomiting, 09/18/19) Home Medications Enalapril Maleate 20 Mg Tablet, 20 MG PO DAILY, (Reported) Hydrochlorothiazide 12.5 Mg Tablet, 12.5 MG PO DAILY, (Reported) Past Wtgrdck-Hpettw-Szbego Hx Patient Social History Alcohol Use: Occasionally Uses (3-4x/wk) Recreational Drug Use: No Smoking Status: Former Smoker Former Smoker, Quit: Jul 04, 1969 Type Used: Cigarettes Recent Foreign Travel: No Contact w/Someone Who Travel: No Recent Infectious Disease Expo: No Recent Hopitalizations: No Immunizations Up To Date Tetanus Booster (TDap): More than 5yrs PED Vaccines UTD: Yes Date of Pneumonia Vaccine: Jul 04, 2017 Date of Influenza Vaccine: Apr 02, 2020 Seasonal Allergies Seasonal Allergies: No Surgeries History of Surgeries: Yes (X5 SURG.FOR PEDAL NEUROMAS, HIATAL HERNIA WITH ULCER REPAIR) Surgeries: Adenoidectomy, Appendectomy, Hysterectomy, Oophorectomy, Orthopedic, Tonsillectomy Respiratory History of Respiratory Disorde: No Cardiovascular History of Cardiac Disorders: Yes Cardiac Disorders: Hypertension Neurological History of Neurological Disord: No Reproductive System Hx Reproductive Disorders: No Sexually Transmitted Disease: No HIV/AIDS: No Female Reproductive Disorders: Denies 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 Genitourinary History of Genitourinary Disor: No Gastrointestinal History of Gastrointestinal Di: Yes Gastrointestinal Disorders: Polyps, Ulcer Musculoskeletal History of Musculoskeletal Dis: Yes Musculoskeletal Disorders: Arthritis Endocrine History of Endocrine Disorders: No HEENT History of HEENT Disorders: Yes HEENT Disorders: Cataract Loss of Vision: Denies Hearing Impairment: Denies Cancer History of Cancer: No Psychosocial History of Psychiatric Problem: No Integumentary History of Skin or Integumenta: No Blood Transfusions History of Blood Disorders: No Adverse Reaction to a Blood Tr: No (HAS HAD BLOOD WITH NO REACTION) Family Medical History Significant Family History: Diabetes (sister) Family Medial History: Alzheimer's disease 19 MOTHER Arthritis 19 FATHER 19 MOTHER Cataracts 19 FATHER 19 MOTHER Visual disorder 19 FATHER 19 MOTHER Review of Systems-General Constitutional: No chills, No fever EENTM: No ear discharge, No hearing loss, No ear pain, No blurred vision, No double vision, No eye pain Respiratory: No cough, No hemoptysis Cardiovascular: No chest pain Gastrointestinal: RLQ, LLQ, abdominal pain (LLQ and RLQ), nausea, vomiting (yesterday) Psychiatric/Neurological: Denies Headache Physical Exam-General Problems Physical Exam Vital Signs Vital Signs - First Documented 05/09/20 05/09/20 16:28 21:15 Temp 36.6 Pulse 86 Resp 16 B/P (MAP) 138/81 (100) Pulse Ox 99 O2 Delivery Room Air Capillary Refill : Less Than 3 Seconds General Appearance: WD/WN, no apparent distress HEENT: PERRL/EOMI Respiratory: lungs clear, normal breath sounds, no respiratory distress, no accessory muscle use Cardiovascular: regular rate, rhythm Gastrointestinal: normal bowel sounds, soft, tenderness (LLQ and RLQ) Neurologic/Psychiatric: alert, oriented x 3 Skin: normal color, warm/dry Data Review Labs Laboratory Tests 05/09/20 17:10: White Blood Count 9.9, Red Blood Count 5.01, Hemoglobin 14.9, Hematocrit 43, Mean Corpuscular Volume 86, Mean Corpuscular Hemoglobin 30, Mean Corpuscular Hemoglobin Concent 34, Red Cell Distribution Width 12.4, Platelet Count 265, Mean Platelet Volume 9.6, Immature Granulocyte % (Auto) 1, Neutrophils (%) (Auto) 88H, Lymphocytes (%) (Auto) 6L, Monocytes (%) (Auto) 6, Eosinophils (%) (Auto) 0, Basophils (%) (Auto) 0, Neutrophils # (Auto) 8.7H, Lymphocytes # (Auto) 0.6L, Monocytes # (Auto) 0.5, Eosinophils # (Auto) 0.0, Basophils # (Auto) 0.0, Immature Granulocyte # (Auto) 0.1, Neutrophils % (Manual) 90, Lymphocytes % (Manual) 5, Monocytes % (Manual) 5, Eosinophils % (Manual) 0, Basophils % (Manual) 0, Band Neutrophils 0, Blood Morphology Comment NORMAL, Sodium Level 125*L, Potassium Level 4.0, Chloride Level 88L, Carbon Dioxide Level 24, Anion Gap 13, Blood Urea Nitrogen 12, Creatinine 0.70, Estimat Glomerular Filtration Rate > 60, BUN/Creatinine Ratio 17, Glucose Level 125H, Calcium Level 10.2H, Corrected Calcium , Total Bilirubin 1.5H, Aspartate Amino Transf (AST/SGOT) 24, Alanine Aminotransferase (ALT/SGPT) 22, Alkaline Phosphatase 65, C-Reactive Protein High Sensitivity 0.42, Total Protein 7.4, Albumin 4.6H, Lipase 12 05/09/20 20:23: Urine Color YELLOW, Urine Clarity CLOUDY, Urine pH 7.0, Urine Specific Rogers 1.010L, Urine Protein NEGATIVE, Urine Glucose (UA) NEGATIVE, Urine Ketones 2+H, Urine Nitrite NEGATIVE, Urine Bilirubin NEGATIVE, Urine Urobilinogen 0.2, Urine Leukocyte Esterase 2+H, Urine RBC (Auto) TRACE-L, Urine RBC 0-2, Urine WBC 25- 50H, Urine Squamous Epithelial Cells 0-2, Urine Crystals NONE, Urine Bacteria TRACE, Urine Casts NONE, Urine Mucus SMALLH, Urine Culture Indicated YES 05/10/20 05:34: White Blood Count 8.0, Red Blood Count 4.32, Hemoglobin 13.1, Hematocrit 37, Mean Corpuscular Volume 86, Mean Corpuscular Hemoglobin 30, Mean Corpuscular Hemoglobin Concent 35, Red Cell Distribution Width 12.3, Platelet Count 225, Mean Platelet Volume 9.9, Immature Granulocyte % (Auto) 0, Neutrophils (%) (Auto) 80H, Lymphocytes (%) (Auto) 9L, Monocytes (%) (Auto) 10, Eosinophils (%) (Auto) 0, Basophils (%) (Auto) 0, Neutrophils # (Auto) 6.4, Lymphocytes # (Auto) 0.8L, Monocytes # (Auto) 0.8, Eosinophils # (Auto) 0.0, Basophils # (Auto) 0.0, Immature Granulocyte # (Auto) 0.0, Sodium Level 126L, Potassium Level 3.9, Chloride Level 95L, Carbon Dioxide Level 20L, Anion Gap 11, Blood Urea Nitrogen 10, Creatinine 0.61, Estimat Glomerular Filtration Rate > 60, BUN/Creatinine Rat io 16, Glucose Level 115H, Calcium Level 8.8, Corrected Calcium 9.1, Total Bilirubin 1.4H, Aspartate Amino Transf (AST/SGOT) 19, Alanine Aminotransferase (ALT/SGPT) 15, Alkaline Phosphatase 56, Total Protein 5.7L, Albumin 3.6 Radiology Date of Exam:05/09/20 CT ABDOMEN/PELVIS with contrast. Small bowel obstruction. No obstructing lesion is evident on this study. No bowel wall edema is evident at this time. Date of Exam:05/09/20 ACUTE ABD SERIES The bowel gas pattern is probably secondary to an ileus. Low-grade obstruction is a possibility. Continued follow- up is recommended. Assessment/Plan Assessment/Plan Assessment/Plan Bowel obstruction - imaging preformed. possible surgery needed. Clinical Quality Measures DVT/VTE Risk/Contraindication: Risk Factor Score Per Nursin RFS Level Per Nursing on Admit: 2=Moderate HERSON BUSBY DO 05/10/20 1416: History of Present Illness History of Present Illness Time Seen by Provider: 12:37 History of Present Illness When I spoke to the pt this afternoon, she had just gotten a tray of clear liquids and stated she had no abdominal pain. She was hungry and happy to start eating. She states she has never had pain like this before and has never been told before that she has had a bowel obstruction. Pt states she still has no flatus or BM. Allergies and Home Medications Allergies Coded Allergies: codeine (Verified Allergy, Unknown, Vomiting, 09/18/19) Home Medications Enalapril Maleate 20 Mg Tablet, 20 MG PO DAILY, (Reported) Hydrochlorothiazide 12.5 Mg Tablet, 12.5 MG PO DAILY, (Reported) Patient Home Medication List Home Medication List Reviewed: Yes Past Jjmzcyu-Kzdwav-Hrrfsr Hx Patient Social History Alcohol Use: Occasionally Uses (3-4x/wk) Recreational Drug Use: No Smoking Status: Never a Smoker Surgeries History of Surgeries: Yes (hx of repair of gastric perforation) Surgeries: Appendectomy, Hysterectomy Respiratory History of Respiratory Disorde: No Family Medical History Significant Family History: Diabetes (sister) Family Medial History: Alzheimer's disease 19 MOTHER Arthritis 19 FATHER 19 MOTHER Cataracts 19 FATHER 19 MOTHER Visual disorder 19 FATHER 19 MOTHER Review of Systems-General Constitutional: No chills, No fever EENTM: No ear discharge, No hearing loss, No blurred vision, No double vision, No eye pain Respiratory: No cough, No hemoptysis Cardiovascular: No chest pain, No palpitations Gastrointestinal: RLQ, LLQ, abdominal pain (LLQ and RLQ), nausea, vomiting (yesterday) Genitourinary: No dysuria, No frequency, No hematuria Musculoskeletal: joint pain, joint swelling, muscle stiffness Psychiatric/Neurological: Denies Emotional Problems, Denies Headache, Denies Seizure Other pt denies any hx of abnormal bleeding or bruising Physical Exam-General Problems Physical Exam General Appearance: WD/WN, no apparent distress Eyes: Bilateral Eye PERRL, Bilateral Eye EOMI HEENT: pharynx normal; No scleral icterus (R), No scleral icterus (L) Neck: non-tender, supple Respiratory: lungs clear, normal breath sounds, no respiratory distress, no accessory muscle use Cardiovascular: regular rate, rhythm, no murmur Gastrointestinal: normal bowel sounds, soft; No distended, No guarding, No rebound; tenderness (LLQ and RLQ) Back: no CVA tenderness, no vertebral tenderness Extremities: no pedal edema, no calf tenderness, normal capillary refill 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 She has a calcified stone? in her abdomen, but this is most likely an incidental finding. Agree with attempting diet and seeing if pain returns or if she has BM and flatus. No indications for surgery at this time. Will follow along. Hyponatremia should come up slowly with IV fluids and diet. Supervisory-Addendum Brief Verification & Attestation Participated in pt care: history, MDM, physical Personally performed: exam, history, MDM Care discussed with: Medical Student Procedures: n/a Verification and Attestation of Medical Student E/M Service A medical student performed and documented this service. I then reviewed and verified all information documented by the medical student and made modifications to such information, when appropriate. I personally performed a physical exam, medical decision making and then discussed any differences between the notes and made revisions as necessary to create one note. Herson Busby , 05/10/20 , 14:28 JOURDAN LOPEZ MED STUDENT May 10, 2020 12:46 HERSON BUSBY DO May 10, 2020 14:16
--- NOTE | 2020-05-10 12:50 | History & Physical-Hospitalist ---
History of Present Illness HPI/Chief Complaint Pt is an 80yoCF with a PMH of HTN who presented to the ER due to abdominal pain and vomiting. She states it started two nights and and she was up multiple times throughout the night due to pain. She then began vomiting after trying to eat breakfast. She reports she is not passing any flatus or BM since two days ago. She denies any history of similar symptoms previously. At first she also denied any history of abdominal surgery but when asked specifically she has had an appendectomy and hysterectomy. She was found to have a SBO on CT in the ER and admitted for further management. This morning she has still not had a BM or passed any flatus. Source: patient Date Seen 05/10/20 Time Seen by a Provider: 12:30 Attending Physician Karol Cabral MD PCP Zoran Bethea MD Referring Physician Date of Admission May 09, 2020 at 20:54 Home Medications & Allergies Home Medications Reviewed patient Home Medication Reconciliation performed by pharmacy medication reconciliations medication reconciliation technician and/or nursing. Patients Allergies have been reviewed. Allergies Allergies Coded Allergies codeine (Verified Allergy, Unknown, Vomiting, 09/18/19) Past Iywyvhg-Wwplep-Igyrbv Hx Past Med/Social Hx: Reviewed Nursing Past Med/Soc Hx Patient Social History Alcohol Use: Denies Use Recreational Drug Use: No Smoking Status: Former Smoker Former Smoker, Quit: Jul 04, 1969 Type Used: Cigarettes Recent Foreign Travel: No Contact w/other who traveled: No Recent Hopitalizations: No Recent Infectious Disease Expo: No Immunizations Up To Date Tetanus Booster (TDap): More than 5yrs Pediatric: Yes Date of Pneumonia Vaccine: Jul 04, 2017 Date of Influenza Vaccine: Apr 02, 2020 Seasonal Allergies Seasonal Allergies: No Past Medical History Surgeries: Adenoidectomy, Appendectomy, Hysterectomy, Oophorectomy, Orthopedic, Tonsillectomy Currently Using CPAP: No Currently Using BIPAP: No Cardiac: Hypertension Reproductive: No Sexually Transmitted Disease: No HIV/AIDS: No Female Reproductive Disorders: Denies Menopausal Gastrointestinal: Polyps, Ulcer Musculoskeletal: Arthritis HEENT: Cataract Loss of Vision: Denies Hearing Impairment: Denies History of Blood Disorders: No Adverse Reaction to Blood Saez: No (HAS HAD BLOOD WITH NO REACTION) Family History Reviewed Nursing Family Hx Alzheimer's disease 19 MOTHER Arthritis 19 FATHER 19 MOTHER Cataracts 19 FATHER 19 MOTHER Visual disorder 19 FATHER 19 MOTHER Review of Systems Constitutional: No chills, No fever EENTM: no symptoms reported Respiratory: No cough, No short of breath Cardiovascular: No chest pain, No edema Gastrointestinal: abdominal pain, constipation, nausea, vomiting Genitourinary: other (recent UTI) Musculoskeletal: no symptoms reported Skin: no symptoms reported Psychiatric/Neurological: No Symptoms Reported Physical Exam Physical Exam Vital Signs Vital Signs - First Documented 05/09/20 05/09/20 16:28 21:15 Temp 36.6 Pulse 86 Resp 16 B/P (MAP) 138/81 (100) Pulse Ox 99 O2 Delivery Room Air Capillary Refill : Less Than 3 Seconds Height, Weight, BMI Height: 5'4.00" Weight: 130lbs. 1.0oz. 58.399757nv; 21.43 BMI Method:Stated General Appearance: No Apparent Distress, WD/WN HEENT: PERRL/EOMI, Moist Mucous Membranes; No Scleral Icterus (L), No Scleral Icterus (R) Neck: Normal Inspection, Supple Respiratory: Lungs Clear, No Accessory Muscle Use, No Respiratory Distress Cardiovascular: Regular Rate, Rhythm, No Murmur Gastrointestinal: Abnormal Bowel Sounds (quiet), Distended (mild); No Guarding, No Rebound; Tenderness (mild) Extremity: Normal Capillary Refill, No Calf Tenderness, No Pedal Edema Neurologic/Psychiatric: Alert, Oriented x3, Normal Mood/Affect Skin: Normal Color, Warm/Dry Results Results/Procedures Labs Laboratory Tests 05/09/20 17:10 05/10/20 05:34 Patient resulted labs reviewed. Imaging: Reviewed Imaging Report Imaging [facility], [place], [place] NAME: NATE [facility] REC#: [id number] PT STATUS: REG ER : 1940 PHYSICIAN: KEISHA CABALLERO MD ADMIT DATE: 05/09/20/ER Signed Date of Exam:05/09/20 ACUTE ABD SERIES INDICATION: Abdominal pain. EXAMINATION: The upright chest shows no acute abnormality. FINDINGS: Supine and upright views of the abdomen shows several air-filled loops of small bowel with several loops being upper normal in diameter at 3 cm. No mucosal edema is evident. There is some air in the colon. There is interposition of a loop of colon between the diaphragm and liver. There is a calcification in the left lower quadrant which is curvilinear in nature and measures approximately 3 cm in greatest dimension. This is somewhat oblong and unusual for gallstone ileus although in the differential it is not felt to be likely. There is no free intraperitoneal air. No urinary tract calculus is evident. There are degenerative changes of the spine. IMPRESSION: The bowel gas pattern is probably secondary to an ileus. Low-grade obstruction is a possibility. Continued follow-up is recommended. Dictated by: Dictated on workstation # [id number] Dict: 05/09/201844 Trans: 05/09/201934 [id number] Interpreted by: JAYSON HUMPHRIES MD Electronically signed by: JAYSON HUMPHRIES MD 05/09/201934 [facility] [place], [place] NAME: NATE [facility]ER [facility] REC#: [id number] PT STATUS: REG ER : 1940 PHYSICIAN: KEISHA CABALLERO MD ADMIT DATE: 05/09/20/ER Signed Date of Exam:05/09/20 CT ABDOMEN/PELVIS W PROCEDURE: CT abdomen and pelvis with contrast. TECHNIQUE: Multiple contiguous axial images were obtained through the abdomen and pelvis after administration of intravenous contrast. Auto Exposure Controls were utilized during the CT exam to meet ALARA standards for radiation dose reduction. All CT scans use one or more of the following dose optimizing techniques: automated exposure control, MA and/or KvP adjustment based on patient size and exam type or iterative reconstruction. INDICATION: Abdominal pain. Possible small bowel obstruction. FINDINGS: There is a small hiatal hernia. The lung bases are clear. Liver, gallbladder and bile ducts are normal. The spleen, pancreas and adrenals are normal. Kidneys, ureters and bladder are normal. There are multiple air and fluid-filled loops of dilated small bowel proximally. There are nondilated loops of small bowel distally and the changes are consistent with a small bowel obstruction. There is a 3 cm curvilinear calcification seen in the mesentery in the left mid abdomen which does not appear to be within a loop of bowel. There is no bowel wall edema. There is some air scattered throughout a nondilated colon. There is no free intraperitoneal air or fluid. There is no acute bony abnormality. IMPRESSION: Small bowel obstruction. No obstructing lesion is evident on this study. No bowel wall edema is evident at this time. Dictated by: Dictated on workstation # [id number] Dict: 05/09/201945 Trans: 05/09/201952 [id number] Interpreted by: JAYSON HUMPHRIES MD Electronically signed by: JAYSON HUMPHRIES MD 05/09/201952 Assessment/Plan Admission Diagnosis SBO Admission Status: Inpatient Order (span 2 midnights) Reason for Inpatient Admission: see below Assessment and Plan SBO CT confirmed SBO pain regimen Antiemetics Doing ok without an NGT for now- monitor closely Surgery consulted appreciate recs NPO Hypovolemic hyponatremia Continue IVF Improved today Seems baseline is low 130s HTN Nitropaste prn as is NPO UTI Recently diagnosed with UTI Will start Rocephin Diagnosis/Problems Diagnosis/Problems (1) Nausea & vomiting Status: Acute Qualifiers: Vomiting type: unspecified Vomiting Intractability: non-intractable Qualified Codes: R11.2 - Nausea with vomiting, unspecified (2) Small bowel obstruction Status: Acute (3) Hyponatremia Status: Acute (4) UTI (urinary tract infection) Status: Acute Clinical Quality Measures DVT/VTE Risk/Contraindication: Risk Factor Score Per Nursin RFS Level Per Nursing on Admit: 2=Moderate KAROL CABRAL MD May 10, 2020 12:50
[2020-05-10] MEDS ORDERED: cefTRIAXone FOR IV USE 1,000 MG in WATER (STERILE) FOR INJECTION 10 ML IV SCH (13:00)
[2020-05-10] MEDS ORDERED: NITROGLYCERIN 2% OINT 1 GM UNIT DOSE PACKET TOP PRN (13:00)
[2020-05-10 15:56] VITALS: BP 137/87
[2020-05-10] MEDS ORDERED: ONDANSETRON 4 MG/2 ML (SDV) Z0FRAN IVP PRN (16:00)
[2020-05-10 19:43] VITALS: BP 150/90
[2020-05-10 23:05] VITALS: BP 146/84
[2020-05-11] MEDS: LACTATED RINGERS 1,000 ML IV SCH (04:45)
[2020-05-11 08:00] VITALS: BP 148/88
[2020-05-11 08:02] LABS: CHLORIDE 96 MMOL/L (98-107); POTASSIUM 3.5 MMOL/L (3.6-5.0); SODIUM 128 MMOL/L (135-145)
[2020-05-11 08:04] LABS: GLUCOSE 135 MG/DL (70-105)
[2020-05-11 08:06] LABS: CARBON DIOXIDE 21 MMOL/L (21-32)
[2020-05-11 08:08] LABS: CREATININE SERUM 0.67 MG/DL (0.60-1.30); GFR ESTIMATED > 60
[2020-05-11 08:09] LABS: BUN/CREATININE RATIO 9
[2020-05-11] MEDS ORDERED: PANTOPRAZOLE 40 MG (PROTONIX) TAB PO SCH (09:00)
--- NOTE | 2020-05-11 09:03 | Progress Note - Surgery ---
JOURDAN LOPEZ MED STUDENT 05/11/20 0903: Subjective Date Seen by a Provider: May 11, 2020 Time Seen by a Provider: 08:00 Subjective/Events-last exam Pt states she feels better today and had a normal size and consistency BM yesterday. Pt had small BM today. Pt has 0/10 pain and on liquid diet. Pt is walking around and has no difficulty urinating. Pt denies having any other sx associated with it or any pain. Review of Systems General: No Chills, No Night Sweats HEENT: No Head Aches, No Visual Changes, No Eye Pain, No Ear Pain Pulmonary: No Dyspnea, No Cough Cardiovascular: No: Chest Pain, Edema Gastrointestinal: No: Nausea, Vomiting, Abdominal Pain Objective Exam Vital Signs Date Time Temp Pulse Resp B/P (MAP) Pulse Ox O2 Delivery O2 Flow Rate FiO2 05/11/20 08:00 36.7 97 20 148/88 (108) 97 Room Air 05/10/20 23:05 36.1 87 16 146/84 (104) 99 Room Air 05/10/20 20:00 Room Air 05/10/20 19:43 36.3 91 18 150/90 (110) 98 Room Air 05/10/20 15:56 36.3 78 18 137/87 (104) 96 Room Air 05/10/20 11:35 36.6 76 14 168/78 (108) 99 Room Air I & O 05/11/20 07:00 Intake Total 3990 ml Output Total 1580 ml Balance 2410 ml Capillary Refill : Less Than 3 Seconds General Appearance: No Apparent Distress, WD/WN HEENT: PERRL/EOMI; No Scleral Icterus (L), No Scleral Icterus (R) Respiratory: Lungs Clear, Normal Breath Sounds, No Accessory Muscle Use, No Respiratory Distress Cardiovascular: Regular Rate, Rhythm, No Murmur Gastrointestinal: normal bowel sounds, non tender, soft Extremity: Normal Capillary Refill, No Calf Tenderness, No Pedal Edema Neurologic/Psychiatric: Alert, Oriented x3, Normal Mood/Affect Skin: Normal Color, Warm/Dry Results Lab Laboratory Tests 05/11/20 07:48: Sodium Level 128L, Potassium Level 3.5L, Chloride Level 96L, Carbon Dioxide Level 21, Anion Gap 11, Blood Urea Nitrogen 6L, Creatinine 0.67, Estimat Glomerular Filtration Rate > 60, BUN/Creatinine Ratio 9, Glucose Level 135H, Calcium Level 9.0 Assessment/Plan Assessment/Plan Assessment/Plan partial small bowel obstruction - Pt denies abdominal pain. Pt has had BM. continue diet and monitor for changes. No surgery needed at this time. discharge today. Clinical Quality Measures DVT/VTE Risk/Contraindication: Risk Factor Score Per Nursin RFS Level Per Nursing on Admit: 2=Moderate HERSON ROSA DO 05/11/20 1307: Subjective Time Seen by a Provider: 11:45 Subjective/Events-last exam Pt seen and examined, states she had BM, has no abdominal pain and is tolerating diet. Review of Systems General: No Chills, No Night Sweats Pulmonary: No Dyspnea, No Cough Cardiovascular: No: Chest Pain Gastrointestinal: No: Nausea, Vomiting, Abdominal Pain Objective Exam General Appearance: No Apparent Distress, WD/WN HEENT: PERRL/EOMI Respiratory: Lungs Clear, Normal Breath Sounds, No Accessory Muscle Use, No Respiratory Distress Cardiovascular: Regular Rate, Rhythm, No Murmur Gastrointestinal: non tender, soft, no organomegaly Assessment/Plan Assessment/Plan Assessment/Plan PSBO - resolved Pt ok to be sent home, f/u as needed. Supervisory-Addendum Brief Verification & Attestation Participated in pt care: history, MDM, physical Personally performed: exam, history, MDM Care discussed with: Medical Student Procedures: n/a Verification and Attestation of Medical Student E/M Service A medical student performed and documented this service. I then reviewed and verified all information documented by the medical student and made modifications to such information, when appropriate. I personally performed a physical exam, medical decision making and then discussed any differences between the notes and made revisions as necessary to create one note. Herson Rosa , 05/11/20 , 13:07 JOURDAN LOPEZ MED STUDENT May 11, 2020 09:03 HERSON ROSA DO May 11, 2020 13:07
[2020-05-11] MEDS ORDERED: ACETAMINOPHEN 325 MG TABLET PO PRN (10:00)
--- NOTE | 2020-05-11 12:32 | Discharge Inst-Simple/Standard ---
Discharge Inst-Standard Patient Instructions/Follow Up Plan of Care/Instructions/FU: Please continue to take your medications as written. Please follow up with your primary care doctor to follow up this hospital stay. Activity as Tolerated: Yes Discharge Diet: Liquid Diet (advance to soft and then full diet over the next few days) Return to The Hospital For: Abdominal pain, no BM or gas for >24 hours, chest pain, shortness of breath, fever, if you feel you are getting worse. KAROL GOODWIN MD May 11, 2020 12:32
--- NOTE | 2020-05-11 12:34 | Discharge Summary ---
Diagnosis/Chief Complaint Date of Admission May 09, 2020 at 20:54 Date of Discharge Discharge Date: May 11, 2020 Admission Diagnosis [facility] Primary Care Maddie Martinez MD Discharge Diagnosis (1) Nausea & vomiting Status: Acute (2) Small bowel obstruction Status: Acute (3) Hyponatremia Status: Acute (4) UTI (urinary tract infection) Status: Acute Discharge Summary Procedures/Consulations Dr Rosa- Surgery Discharge Physical Exam Allergies: Coded Allergies: codeine (Verified Allergy, Unknown, Vomiting, 09/18/19) Vitals & I&Os Vital Signs Date Time Temp Pulse Resp B/P (MAP) Pulse Ox O2 Delivery O2 Flow Rate FiO2 05/11/20 13:03 36.7 97 20 148/88 97 Room Air General Appearance: No Apparent Distress, WD/WN Cardiovascular: Regular Rate, Rhythm, No Murmur Gastrointestinal: Normal Bowel Sounds, Non Tender, Soft; No Distended Neurologic/Psychiatric: Alert, Oriented x3 Hospital Course patient was admitted due to small bowel obstruction. She was treated conservatively with bowel rest and never even required an NG tube. She did very well and after 1 day of bowel rest bowel function returned. She had multiple bowel movements and was passing flatus. Her pain was resolved. She was discharged home in stable condition to follow up with her primary care doctor. Labs (last 24 hrs) Laboratory Tests 05/11/20 07:48: Sodium Level 128L, Potassium Level 3.5L, Chloride Level 96L, Carbon Dioxide Level 21, Anion Gap 11, Blood Urea Nitrogen 6L, Creatinine 0.67, Estimat Glomeru lar Filtration Rate > 60, BUN/Creatinine Ratio 9, Glucose Level 135H, Calcium Level 9.0 Microbiology 05/09/20 Urine Culture - Final, Complete >=3 Gram Positive Isolates Patient resulted labs reviewed. Pending Labs Laboratory Tests 05/11/20 07:48: Sodium Level 128, Potassium Level 3.5, Chloride Level 96, Carbon Dioxide Level 21, Anion Gap 11, Blood Urea Nitrogen 6, Creatinine 0.67, Estimat Glomerular Patel tration Rate > 60, BUN/Creatinine Ratio 9, Glucose Level 135, Calcium Level 9.0 Imaging: Reviewed Imaging Report Discussion & Recommendations Discharge Planning: <30 minutes discharge planning Discharge Home Medications: Active Scripts Active Reported Hydrochlorothiazide 12.5 Mg Tablet 12.5 Mg PO DAILY Enalapril Maleate 20 Mg Tablet 20 Mg PO DAILY Instructions to patient/family Please see electronic discharge instructions given to patient. Clinical Quality Measures DVT/VTE Risk/Contraindication: Risk Factor Score Per Nursin RFS Level Per Nursing on Admit: 2=Moderate Copy Copies To 1: MADDIE MARTINEZ MD Problem Qualifiers (1) Nausea & vomiting: Vomiting type: unspecified Vomiting Intractability: non-intractable Qualified Codes: R11.2 - Nausea with vomiting, unspecified KAROL GOODWIN MD May 11, 2020 12:34
[2020-05-11 13:03] VITALS: BP 148/88
== END 2020-05-11 13:04 | disposition home or self-care (01) | DRG 389 ==
LOC: EDUNIT# 16:10 → ER 16:11 → 4TH 20:54
PROVIDERS: ADMIT Family Medicine; ATTEND Family Medicine
DX: K56.600 Partial intestinal obstruction, unspecified as to cause (principal); E87.1 Hypo-osmolality and hyponatremia; N39.0 Urinary tract infection, site not specified; I10 Essential (primary) hypertension; Z87.891 Personal history of nicotine dependence; M19.91 Primary osteoarthritis, unspecified site; Z87.19 Personal history of other diseases of the digestive system; Z86.010 Personal history of colon polyps; H26.9 Unspecified cataract; E86.1 Hypovolemia
CPT/HCPCS: 36415; 74022; 74177; 80048; 80053; 81000; 83690; 85007; 85025; 85027; 86141; 87088

== ENCOUNTER 2020-09-08 10:23 | Outpatient (RCR) | payer MEDICARE ==
[~2020-09-08] VITALS: Ht 165.1 cm; Wt 56.5 kg
[2020-09-09] MEDS ORDERED: MTP25TSR PO (07:41)
== END 2020-09-09 15:53 | disposition home or self-care (01) ==
LOC: PREOP 10:23
PROVIDERS: ATTEND Internal Medicine
DX: Z01.818 Encounter for other preprocedural examination (principal)

== ENCOUNTER 2020-09-12 07:54 | Day surgery (SDC) | payer MEDICARE ==
--- NOTE | 2020-09-09 07:25 | HISTORY AND PHYSICAL ---
DATE OF SERVICE: COLONOSCOPY HISTORY AND PHYSICAL HISTORY OF PRESENT ILLNESS: The patient is an 80-year-old white female referred by Dr. Gomez for screening colonoscopy. She does have a past history of colon polyps. Her last colonoscopy was in [address] Hernandez. She had three polyps removed, only one was in the adenoma family, tubular adenoma removed from the transverse colon. It was reported as moderate in size, although an estimation was not given otherwise of size. No dysplasia was noted. The patient reports that over the past several months, she has noticed some constipation with stool that is passing small balls in her words. She denies bright red blood or melena. She denies abdominal distention except that she has not gone in several days. Her energy level has been at baseline stating that she has felt well otherwise, with no change in cold intolerance and she denies change in weight. PAST MEDICAL HISTORY: Significant for hypertension, for which she takes enalapril 10 mg daily, metoprolol 25 mg daily. She has no known history of coronary artery disease. PAST SURGICAL HISTORY: Significant for past appendectomy, hysterectomy for benign reasons with bilateral salpingo-oophorectomy and tonsillectomy. FAMILY HISTORY: She is not aware of any family history for GI tract malignancy. SOCIAL HISTORY: She is with no past significant drinking history. She has a past 20+ pack year smoking history, but quit in 1969. REVIEW OF SYSTEMS: CONSTITUTIONAL: She denies change in weight, night sweats, chills or fever. PULMONARY: She denies cough, dyspnea on exertion or dyspnea at rest. CARDIOVASCULAR: She denies chest pain, orthopnea, PND, pedal edema, syncope or presyncope. GASTROINTESTINAL: As noted in the HPI. PHYSICAL EXAMINATION: GENERAL: Reveals a spry elderly female, appears to be in no acute distress. VITAL SIGNS: Blood pressure 130/90, weight 123. HEENT: Unremarkable. Sclerae nonicteric. CHEST: Clear to auscultation. CARDIOVASCULAR: Revealed an irregular rhythm, heart rate in the 80s without murmur, S3 or S4. ABDOMEN: Soft, supple without mass, organomegaly or tenderness. Bowel sounds are positive. No bruits are noted. EXTREMITIES: Reveal no cyanosis, clubbing or edema. ASSESSMENT AND PLAN: 1. The patient is set up for screening colonoscopy on 09/12/2020. Prep instructions were given, questions were answered and electronic medical record was reviewed. Little over 45 minutes care time was spent. 2. The patient does have an irregular rhythm. She is not aware of any reported history of atrial fibrillation. We will make note of her telemetry during her procedure. I thank you for the referral of this pleasant lady. Job ID: [id number] DocumentID: [id number] Dictated Date: 09/05/2020 17:24:05 Card Filer Date: 09/05/2020 17:51:26 Dictated By: LESVIA MONTALVO MD
[~2020-09-12] VITALS: Ht 165.1 cm; Wt 56.5 kg
[2020-09-12 07:45] VITALS: BP 177/91
[~2020-09-12 07:54] MED LIST changes: +MTP25TSR PO
[2020-09-12] MEDS ORDERED: LACTATED RINGERS 1,000 ML IV STA (08:03)
[2020-09-12] MEDS ORDERED: LACTATED RINGERS 1,000 ML IV ONE (08:05)
[2020-09-12] MEDS ORDERED: LIDOCAINE JELLY 2% 6 ML SYRINGE MM PRN (08:15)
[2020-09-12] MEDS ORDERED: PROPOFOL INJECTION 50 ML IV ONE (08:42)
[2020-09-12] MEDS ORDERED: LIDOCAINE JELLY 2% 6 ML SYRINGE ONE (08:45)
--- NOTE | 2020-09-12 08:56 | Pre-Op Note & Conscious Sedat ---
Pre-Operative Progress Note H&P Reviewed The H&P was reviewed, patient examined and no changes noted. Date H&P Reviewed: Sep 12, 2020 Time H&P Reviewed: 08:45 Conscious Sedation Pre-Proced ASA Score 2 For ASA 3 and 4: Consider anesthesia and medical clearance. Also, for patients with a history of failed moderate sedation consider anesthesia. Airway Lungs Heart ASA score ASA 1: a normal healthy patient ASA 2: a patient with a mild systemic disease (mid diabetes, controlled hypertension, obesity ASA 3: a patient with a severe systemic disease that limits activity (angina, COPD, prior Myocardial infarction) ASA 4: a patient with an incapacitating disease that is a constant threat to life (CHF, renal failure) ASA 5: a moribund patient not expected to survive 24 hrs. (ruptured aneurysm) ASA 6: a declared brain- patient whose organs are being harvested. For emergent operations, add the letter E after the classification Mallampati Classification Grade 2 Sedation Plan Analgesia, Amnesia, Plan communicated to team members, Discussed options with patient/fam, Discussed risks with patient/fam The patient is an appropriate candidate to undergo the planned procedure, sedation, and anesthesia. The patient immediately re-assessed prior to indication. LESVIA MONTALVO MD Sep 12, 2020 08:56
[2020-09-12] MEDS ORDERED: ESMOLOL 100 MG/10 ML (BREVIBLOC) VIAL ONE (08:57)
[2020-09-12 09:25] VITALS: BP 121/67
[2020-09-12 09:30] VITALS: BP 122/72
[2020-09-12 09:35] VITALS: BP 155/74
[2020-09-12 10:00] VITALS: BP 177/100
--- NOTE | 2020-09-12 10:08 | Anesthesia-General Post-Op ---
MAC Patient Condition Mental Status/LOC: Same as Preop Cardiovascular: Satisfactory Nausea/Vomiting: Absent Respiratory: Satisfactory Pain: Controlled Complications: Absent Post Op Complications Complications None Follow Up Care/Instructions Patient Instructions None needed. Anesthesiology Discharge Order Discharge Order Patient is doing well, no complaints, stable vital signs, no apparent adverse anesthesia problems. No complications reported per nursing. CANDACE KNAPP CRNA Sep 12, 2020 10:08
[2020-09-12 10:16] VITALS: BP 177/100
--- NOTE | 2020-09-12 15:35 | OPERATIVE REPORT ---
DATE OF SERVICE: COLONOSCOPY SUMMARY INDICATION FOR THE PROCEDURE: Screening colonoscopy, family history for colon cancer and past history for colon polyps. DESCRIPTION OF PROCEDURE: The patient was placed in the left lateral decubitus position. Prior to undergoing colonoscopy, digital rectal evaluation was performed. Anal sphincter tone was normal and the perianal reflexes intact. No abnormalities were noted on digital inspection of anal canal or distal rectal vault. The colonoscope was then inserted into the rectum and under direct visualization advanced to cecum. The cecum was identified by identification of ileocecal valve and cecal strap. Photographic documentation was obtained. Quality of prep was good. The patient tolerated the procedure well. FINDINGS: There was no evidence for internal or external hemorrhoids. The rectum was unremarkable. Several small sigmoid diverticulum were present and one proximal ascending diverticulum was noted without evidence for diverticulitis. Otherwise, the sigmoid colon, descending colon, splenic flexure, transverse colon, hepatic flexure, ascending colon and cecum were unremarkable. ASSESSMENT: Mild diverticular disease noted predominantly in the sigmoid colon, but one medium size diverticulum was also noted in the proximal ascending colon without evidence for diverticulitis. No evidence for neoplasia was identified. Considering this patient's age, would not advise future surveillance colonoscopy. As she does have occasional small volume bright red blood per rectum with the passage of hard stool in addition to recent history of likely small-bowel obstruction, did not advise fiber supplementation or increasing fiber in her diet, but did recommend daily MiraLax for constipation. I thank you for the referral of this pleasant lady. Job ID: [id number] DocumentID: [id number] Dictated Date: 09/12/2020 10:19:34 Hoop Flaring Machine Operator Date: 09/12/2020 15:34:46 Dictated By: LESVIA MONTALVO MD
== END 2020-09-12 10:15 | disposition home or self-care (01) ==
LOC: ENDO 07:54
PROVIDERS: ATTEND Internal Medicine
DX: Z12.11 Encounter for screening for malignant neoplasm of colon (principal); K57.30 Diverticulosis of large intestine without perforation or abscess without bleeding; I10 Essential (primary) hypertension; M19.90 Unspecified osteoarthritis, unspecified site; Z79.899 Other long term (current) drug therapy; Z88.5 Allergy status to narcotic agent; Z86.010 Personal history of colon polyps; Z90.710 Acquired absence of both cervix and uterus; Z90.722 Acquired absence of ovaries, bilateral; Z80.0 Family history of malignant neoplasm of digestive organs

== ENCOUNTER → 2021-09-02 | Outpatient (CLI) | payer MEDICARE ==
[~2021-09-02] MED LIST changes: +ACHD5005 PO; +ONDA4TAB11 SL; +TRAM50TA3
--- NOTE | 2021-09-02 15:35 | Diagnostic Imaging Report ---
INDICATION: Fall with left rib pain. TECHNIQUE: AP and multiple oblique views of left ribs were obtained. FINDINGS: There is a possible nondisplaced fracture involving the lateral aspect of the left 9th rib. There is mild blunting of the left costophrenic sulcus. No other definite fracture or malalignment is identified. A surgical anchor is seen within the left humeral head. IMPRESSION: Possible nondisplaced left lateral 9th rib fracture with associated mild left pleural fluid or thickening. Dictated by: Dictated on workstation # [id number]
== END ==
LOC: RAD 15:01
PROVIDERS: ATTEND Nurse Practitioner Family
DX: R07.81 Pleurodynia (principal); W19.XXXA Unspecified fall, initial encounter
CPT/HCPCS: 71100

== ENCOUNTER 2021-09-03 00:46 | Emergency (ER) | payer MEDICARE ==
[~2021-09-03] VITALS: Ht 163 cm; Wt 56.5 kg
[~2021-09-03 00:46] MED LIST changes: -ACHD5005 PO; -ONDA4TAB11 SL; -TRAM50TA3
[2021-09-03] MEDS ORDERED: TRAM50TA3 (01:14)
--- NOTE | 2021-09-03 02:56 | ED General ---
General Chief Complaint: Trauma-Non Activation Stated Complaint: FALL 09.01.21, LEFT SIDE RIB PAIN Nursing Triage Note: fall 09/01/21 0200, c/o left posterior rib pain. denies other injuries. Source of Information: Patient Exam Limitations: No Limitations (ADITYA OG STUDENT) History of Present Illness Date Seen by Provider: Sep 03, 2021 Time Seen by Provider: 01:45 Initial Comments This is an 81 YO female presenting to the ED s/p fall 2 days ago. Pt says that about 48 hours ago, she tripped on a chair in her house and hit her left ribs on an ottoman as she fell. Denies hitting her head or LOC. Notes a bruise on her left forearm, but denies any associated pain and denies any other injuries associated with the fall other than the rib pain. She says that yesterday she went to her PCP's office and was seen by the PA, who ordered an outpatient x-ray and Rx'd Tramadol. Pt took Tylenol yesterday as well as the Tramadol without improvement. Pt reports the pain has gradually worsened throughout the day, particularly with deep breathing. Location Injury Occurred: home (ADITYA OG STUDENT) Allergies and Home Medications Allergies Coded Allergies: codeine (Verified Allergy, Unknown, Vomiting, 09/18/19) Patient Home Medication List Home Medication List Reviewed: Yes (KEISHA CABALLERO MD) Enalapril Maleate (Enalapril Maleate) 20 Mg Tablet, 20 MG PO DAILY, (Reported) Entered as Reported by: MAYRA SHARMA on 03/26/15 1037 Hydrocodone/Acetaminophen (Hydrocodone-Acetamin 5-325 mg) 1 Each Tablet, 0.5-1 TAB PO Q4H PRN for PAIN-MODERATE (5-7) Prescribed by: KEISHA SEPULVEDA on 09/03/21 042 Metoprolol Succinate (Metoprolol Succinate) 25 Mg Tab.er.24h, 25 MG PO DAILY, (Reported) Entered as Reported by: YANG CERVANTES on 09/09/20 0741 Ondansetron (Ondansetron Odt) 4 Mg Tab.rapdis, 4 MG SL Q4H Prescribed by: KEISHA SEPULVEDA on 09/03/21 042 Tramadol HCl (Tramadol HCl) 50 Mg Tablet, (Reported) Entered as Reported by: JAYSON NIEVES on 09/03/21 0114 Last Action: New Order Review of Systems Review of Systems Constitutional: No chills, No fever EENTM: No blurred vision, No double vision Respiratory: No cough, No short of breath Cardiovascular: No palpitations, No syncope Gastrointestinal: No abdominal pain, No vomiting Genitourinary: no symptoms reported Musculoskeletal: No joint pain, No neck pain Skin: No pruritus, No rash Psychiatric/Neurological: Denies Headache, Denies Numbness Hematologic/Lymphatic: No Symptoms Reported Immunological/Allergic: no symptoms reported (ADITYA OG STUDENT) All Other Systems Reviewed Negative Unless Noted: Yes (Negative excepted noted.) (ADITYA OG STUDENT) Past Iqejwsg-Mnvhia-Yluozx Hx Patient Social History Tobacco Use?: No Substance use?: No Alcohol Use?: No Pt feels they are or have been: No (ADITYA OG) Immunizations Up To Date Tetanus Booster (TDap): More than 5yrs PED Vaccines UTD: No (ADITYA OG) Seasonal Allergies Seasonal Allergies: No (ADITYA OG) Past Medical History Surgery/Hospitalization HX: htn, ulcer, h. 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 Sexually Transmitted Disease: No HIV/AIDS: No Genitourinary: No Gastrointestinal: Yes Polyps, Ulcer Musculoskeletal: Yes Arthritis, Back Injury Endocrine: No HEENT: Yes Cataract Loss of Vision: Denies Hearing Impairment: Denies Cancer: No Psychosocial: No Integumentary: No Blood Disorders: No Adverse Reaction/Blood Tranf: No (HAS HAD BLOOD WITH NO REACTION) (ADITYA OG [employer] STUDENT) Family Medical History Alzheimer's disease 19 MOTHER Arthritis 19 FATHER 19 MOTHER Cataracts 19 FATHER 19 MOTHER Visual disorder 19 FATHER 19 MOTHER Diabetes (ADITYA OG [employer] STUDENT) Physical Exam Vital Signs Vital Signs - First Documented 09/03/21 01:08 Temp 36.1 Pulse 87 Resp 18 B/P (MAP) 188/107 (134) Pulse Ox 95 O2 Delivery Room Air (BRUEGGEMANN,KEISHA T MD) Vital Signs Capillary Refill : Less Than 3 Seconds (ADITYA OG MED STUDENT) Height, Weight, BMI Height: 5'4.00" Weight: 130lbs. 1.0oz. 58.341142qy; 21.00 BMI Method:Stated General Appearance: No Apparent Distress, WD/WN Eyes: Bilateral Eye Normal Inspection, Bilateral Eye PERRL, Bilateral Eye EOMI HEENT: PERRL/EOMI; No Scleral Icterus (L), No Scleral Icterus (R); Other (NC/AT) Neck: Normal Inspection, Supple Respiratory: Lungs Clear, Normal Breath Sounds, No Accessory Muscle Use, No Respiratory Distress Cardiovascular: Regular Rate, Rhythm, No Edema, No Murmur Gastrointestinal: Non Tender, Soft; No Distended Back: Normal Inspection, Other (left posterior rib tenderness with no overlying bruising or erythema) Extremity: Normal Range of Motion, Other (diffuse left forearm bruising with no bony tenderness) Neurologic/Psychiatric: Alert, Oriented x3, No Motor/Sensory Deficits, Normal Mood/Affect Skin: Normal Color, Warm/Dry (ADITYA OG MED STUDENT) Progress/Results/Core Measures Suspected Sepsis SIRS Temperature: Pulse: 87 Respiratory Rate: 18 Blood Pressure 188 /107 Mean: 134 (ADITYA OG STUDENT) Results/Orders My Orders Orders - KEISHA CABALLERO MD Ondansetron Oral Dissolve Tab (Zofran (09/03/21 04:15) Hydrocodone/Apap 5/325 Tablet (Lortab 5 (09/03/21 04:15) (KEISHA CABALLERO MD) Vital Signs/I&O 09/03/21 09/03/21 01:08 04:30 Temp 36.1 36.2 Pulse 87 84 Resp 18 16 B/P (MAP) 188/107 (134) 122/67 Pulse Ox 95 99 O2 Delivery Room Air (KEISHA CABALLERO MD) Vital Signs/I&O Capillary Refill : Less Than 3 Seconds (ADITYA OG MED STUDENT) Blood Pressure Mean: 134 Progress Note : Progress Note Patient's pain was not well controlled on tramadol and Tylenol. She was hesitant to take opioids because they cause upset stomach. She was given hydrocodone along with Zofran to control any adverse effect of nausea. She was advised to take Colace stool softener along with opioids. See discharge instructions for further information. (KEISHA CABALLERO MD) Diagnostic Imaging Diagonstic Imaging: Xray Plain Films/CT/US/NM/MRI: chest Comments X-ray from earlier in the day reviewed. See report below: NAME: NATE RADER [facility] REC#: [id number] PT STATUS: REG CLI : 1940 PHYSICIAN: SONIA BAUTISTA APRN ADMIT DATE: 09/02/21/RAD Signed Date of Exam:09/02/21 RIBS, LEFT 2-3 VIEWS INDICATION: Fall with left rib pain. TECHNIQUE: AP and multiple oblique views of left ribs were obtained. FINDINGS: There is a possible nondisplaced fracture involving the lateral aspect of the left 9th rib. There is mild blunting of the left costophrenic sulcus. No other definite fracture or malalignment is identified. A surgical anchor is seen within the left humeral head. IMPRESSION: Possible nondisplaced left lateral 9th rib fracture with associated mild left pleural fluid or thickening. Dictated by: Dictated on workstation # [id number] Dict: 09/02/21 1532 Trans: 09/02/21 1706 [id number] Interpreted by: NOELLE SU MD Electronically signed by: NOELLE SU MD 09/02/21 170 (KEISHA CABALLERO MD) Departure Impression Primary Impression: Rib fracture Qualified Codes: S22.32XA - Fracture of one rib, left side, initial encounter for closed fracture Disposition: 01 HOME, SELF-CARE Condition: Improved Departure-Patient Inst. Decision time for Depature: 04:18 (KEISHA CABALLERO MD) Referrals: MADDIE MARTINEZ MD (PCP/Family) Primary Care Physician Patient Instructions: Rib Fractures in Adults Add. Discharge Instructions: Try to exercise deep breathing 10 times per hour while awake. Take hydrocodone as prescribed for pain control. It is important to maintain good pain control so that you can continue breathing deeply. In addition to hydrocodone, you may try a topical lidocaine patch purchased [id number] as well as icing in 20-minute intervals. It may be alfredo to take a stool softener such as Colace while using hydrocodone to prevent constipation. Zofran (ondansetron) can be used as prescribed to help prevent nausea associated with your pain medications. Call with questions or concerns. Follow-up with your primary care provider next week for reevaluation. Return to the ER if you have worsening symptoms despite following these instructions. All discharge instructions reviewed with patient and/or family. Voiced understanding. Scripts Ondansetron (Ondansetron Odt) 4 Mg Tab.rapdis 4 MG SL Q4H, #10 TAB 1 Refill Prov: KEISHA CABALLERO MD 09/03/21 Hydrocodone/Acetaminophen (Hydrocodone-Acetamin 5-325 mg) 1 Each Tablet 0.5-1 TAB PO Q4H PRN for PAIN-MODERATE (5-7), #20 TAB Prov: KEISHA CABALLERO MD 09/03/21 Copy Copies To 1: MADDIE MARTINEZ MD Copies To 2: MARCIE SNYDER CHRISTINE MED STUDENT Sep 03, 2021 02:56 KEISHA CABALLERO MD Sep 03, 2021 04:22
[2021-09-03] MEDS ORDERED: ONDANSETRON 4 MG (ZOFRAN) ORAL DISSOLVE TAB SL ONE (04:15)
[2021-09-03] MEDS ORDERED: HYDROcodone/APAP 5 MG/325 MG (LORTAB) TAB PO ONE (04:15)
[2021-09-03] MEDS ORDERED: ONDA4TAB11 SL (04:21)
[2021-09-03] MEDS ORDERED: ACHD5005 PO (04:21)
[2021-09-03 04:30] VITALS: BP 122/67
== END 2021-09-03 04:30 | disposition home or self-care (01) ==
LOC: EDUNIT# 00:46 → ER 00:50
DX: S22.32XA Fracture of one rib, left side, initial encounter for closed fracture (principal); S50.12XA Contusion of left forearm, initial encounter; W01.198A Fall on same level from slipping, tripping and stumbling with subsequent striking against other object, initial encounter
CPT/HCPCS: 99283